=== PATIENT | male | born 1935 | race Caucasian/White ===

== ENCOUNTER 2024-04-03 11:31 | Emergency (ER) | payer MEDICARE, SELFPAY ==
--- NOTE | ~2024-04-03 | US_ITS ---
EXAMINATION: US TRIPLEX LOWER EXTREMITY, LEFT CLINICAL INFORMATION: Left leg pain x 3 weeks COMPARISON: None available. TECHNIQUE: Color-flow triplex imaging with spectral analysis and compression Doppler were performed on the left lower extremity. FINDINGS: Respiratory variation, normal compression and augmented flow are noted throughout the left lower extremity. The visualized common femoral vein, superficial femoral vein, profunda femoral vein, popliteal vein and midcalf peroneal and posterior tibial venous segments show no evidence of deep venous thrombosis. There is no Mckeon's cyst. US/US venous duplex LE LT IMPRESSION: No evidence of deep venous thrombosis involving the left lower extremity. Electronically signed by: Khoi Govea MD 04/03/2024 01:05 PM [facility]
--- NOTE | ~2024-04-03 | XR_ITS ---
CLINICAL HISTORY: back pain 3 views lumbar spine Comparison: None Findings: There is trace retrolisthesis of L2 on L3. There is grade 1 anterolisthesis of L4 on L5. No acute fractures or dislocation. Multilevel degenerative disc disease, most pronounced within the lower lumbar spine. Facet osteoarthritis is also present within the mid and lower lumbar spine. There is partial visualization of right hip replacement hardware. There are vascular calcifications. IMPRESSION: Multilevel degenerative disc disease and facet osteoarthritis. Mild spondylolisthesis at L2-L3 and L4-L5. This document has been electronically signed by: Elizabeth Guerrier MD on 04/03/2024 17:26:56
--- NOTE | ~2024-04-03 | XR_ITS ---
CLINICAL HISTORY: pain 3 view, pelvis and left hip Comparison: None Findings: Status post right hip replacement. Visualized hardware intact without evidence of failure. No acute fracture. No dislocation. There are mild arthritic changes of the left hip. The soft tissues are unremarkable. IMPRESSION: No acute findings. This document has been electronically signed by: Elizabeth Guerrier MD on 04/03/2024 17:24:25
--- NOTE | 2024-04-03 11:41 | ED_ITS ---
HPI - General Adult General Chief complaint: Extremity Injury, Lower Stated complaint: L leg pain Time Seen by Provider: 04/03/24 14:52 Source: patient and RN notes reviewed Mode of arrival: ambulatory Limitations: no limitations History of Present Illness ED Provider: Marie Leroy PA-C [facility] narrative: This is a 89 year old male, a fib on coumadin, diabetes, DDD, who presents to the ER with complaints of left leg pain. Pt states that over the last 3 weeks he has had intermittent left leg pain. No recent trauma or injury. Reports that the pain starts in his left low back and radiates down his left leg. He denies any urinary or bowel retention or incontinence. No saddle anesthesia. No numbness/tingling. He denies any chest pain, shortness of breath, abdominal pain. No urinary symptoms. He previously saw [facility] and was previously getting back injections, has not seen them in > 1 year. He has tried tylenol, tramadol and morphine for his pain which has provided him with some relief. No other complaints or concerns at this time. MD complaint: left leg pain Onset (ago): week(s) Radiation: back Severity: moderate Quality: aching Pain Consistency: intermittent Relieving factors: immobilization Exacerbating factors: movement Treatments prior to arrival: none Related Data Previous Rx's ?Medication ?Instructions ?Recorded acetaminophen 650 mg 650 mg PO Q8H #30 tabs 04/03/24 tablet,extended release (Tylenol 8 Hour) lidocaine 5 % topical patch 1 patch topical DAILY PRN pain #30 04/03/24 ea Allergies Allergy/AdvReac Type Severity Reaction Status Date / Time No Known Allergies Allergy Verified 04/03/24 11:45 Review of Systems 2 Review of Systems: Yes all other systems are reviewed and are negative Constitutional: Constitutional: Reports as per [facility] Past Medical History Attestation statement: The following information was validated with the patient. Social History Social History Advance Directives: No Advance Directives Information Provided: Yes Do you have a plan to hurt others: No Plan Physical Exam ED Vital Signs: Vital Signs - 24 hr 04/03/24 11:42 04/03/24 15:18 04/03/24 18:30 Temperature 98.6 F 98 F 97.5 F Pulse Rate 69 59 55 Respiratory Rate 16 15 16 Blood Pressure 139/65 141/63 H 158/73 H Pulse Oximetry 99 97 100 Oxygen Delivery Method Room Air Room Air Room Air 04/03/24 19:03 Temperature 97.5 F Pulse Rate 55 Respiratory Rate 16 Blood Pressure 158/73 H Pulse Oximetry 100 Oxygen Delivery Method Room Air BMI result Body Mass Index 27.0 Const General: cooperative, comfortable and no acute distress Orientation/consciousness: patient oriented x3 Limitations: no limitations HENNM Head: Yes normal to inspection, Yes normocephalic and Yes atraumatic Ears: hearing grossly normal bilaterally General nose exam: Normal external nose present Face and sinus: Yes normal facial exam Mouth: Normal oral and palatal mucosa present, oropharynx normal and moist mucous membranes Throat: Yes posterior oropharynx normal Eyes General: appearance normal, both eyes and all related structures Eyelids: Yes eyelids normal Conjunctivae: conjunctivae normal Sclerae: sclerae normal Pupils: Equal, round and reactive pupils present EOM: EOMs intact bilaterally Neck Neck: Yes normal visual inspection, Yes full ROM and Yes no lymphadenopathy Lymphatic: no lymphadenopathy noted Chest Chest palpation & inspection: normal inspection of the chest Resp Effort & Inspection: normal respiratory effort and able to speak in complete sentences Auscultation: clear to auscultation bilaterally, no crackles, no rales, no rhonchi and no wheezes Cardio Rate: regular rate Rhythm: regular rhythm Heart sounds: S1 normal heart sound present and S2 normal heart sound present GI Inspection: Yes normal to inspection Skin General skin exam: no rashes or lesions noted Trauma: no lacerations or abrasions Wounds: no wounds Neuro General: patient oriented x3 and moves all extremities Cranial nerves: Yes Equal, round and reactive pupils present Extrem Other: Left leg warm and is well perfused with strong DP, popiteal, and femoral pulse. +STL on the left. Capillary refill less than 3 seconds. No calf tenderness. No pitting edema. TTP overlying the left lumbar musculature and left SI joint. No midline spine TTP. Sensation intact. General: Yes normal to inspection Right upper extremity: normal to inspection Left upper extremity: normal to inspection Right lower extremity: normal to inspection Left lower extremity: normal to inspection Course Course Course Narrative: This is a rapid medical exam performed by Edin Tamayo NP: Additional HPI, ROS, PE not included below will be deferred to primary provider. Patient is an 89-year-old male with history of afib on warfarin, DM presenting to the emergency department with complaint of left lower leg pain since the beginning of march. Plan: labs, U/S Medications Administered Discontinued Medications Generic Name Dose Route Start Last Admin Trade Name Francisca PRN Reason Stop Dose Admin Sodium Chloride 1,000 mls @ 999 mls/hr 04/03/24 16:32 04/03/24 17:46 Ns IV 04/03/24 17:32 Infused .Q1H1M ONE Infusion Medical Decision Making Medical Decision Making [facility] Narrative: This is a 89 year old male, with a hx of afib on coumadin, diabetes, DDD, who presents to the ER with complaints of atraumatic left leg pain and left low back pain x 3 weeks. On arrival, vital signs WNL. Pt well appearing, alert and oriented x 4 and is comfortable. He is here with family. Pt with TTP overlying the left SI joint, and lumbar musculature. He has no calf tenderness. Leg is well perfused with strong pulses and sensation intact. This patient presents with back pain most consistent with lumbar radiculopathy. Differential diagnoses includes lumbago versus musculoskeletal spasm / strain versus sciatica. No back pain red flags on history or physical. Presentation not consistent with malignancy (lack of history of malignancy, lack of B symptoms), fracture (no trauma, no bony tenderness to palpation), cauda equina syndrome (no bowel or urinary incontinence/retention, no saddle anesthesia, no distal weakness), pyelonephritis (afebrile, no CVAT, no urinary symptoms). Labs were obtained which reveal an elevated creatinine, unsure of baseline as we have no labs on record for comparison. Mild elevated in bilirubin, no previous for comparison. He has no abdominal pain. Xrays obtained revealing spondylosis and degenerative changes. Discussed findings with patient and family at bedside. Recommending tylenol. He has diabetes therefore steroids was considered however deferred. Given age, and anticoagulation he is unable to take NSAIDs, and muscle relaxants contraindicated due to risk of falls. Stressed the importance of following up with PCP and PSSP. Also given referrral to the community specialist if they would like to follow up with them. Given return precautions. They understand and agree with plan. Stable for d/c. Differential Diagnosis Differential Diagnoses: The differential diagnosis associated with the presentation includes see above Admission/Observation Consideration of admission/observation: Escalation of care including admission/observation considered Escalation of care including admission/observation considered however given workup today not warranted at this time. Lab Data MDM Lab Attestation statement: I reviewed the patient's lab results. No leukocytosis, mild anemia at 13.9/41.1, Creatinine 1.73 BUN 35 (no comparison on file),T bili slightly elevated at 1.6. 04/03/24 13:26 04/03/24 13:26 Labs: Lab Results 04/03/24 Range/Units 13:26 WBC 7.0 (4.8-10.8) X10*3/uL RBC 4.62 (4.60-5.80) X10*6/uL Hgb 13.9 L (14.0-18.0) g/dl Hct 41.1 L (42.0-52.0) % MCV 89.0 (80.0-98.0) fL MCH 30.1 (27.0-33.0) pg MCHC 33.8 (31.0-36.0) g/dl RDW 14.0 (11.0-16.0) % Plt Count 181 (160-400) X10*3/uL MPV 12.4 (9.4-12.4) fL Immature Gran % (Auto) 0.3 (0.0-0.4) % Neut % (Auto) 76.8 H (45-73) % Lymph % (Auto) 13.7 L (20-40) % Beauregard % (Auto) 8.5 (2-11) % Eos % (Auto) 0.6 (0-4) % Baso % (Auto) 0.1 (0-2) % Lymph # (Auto) 1.0 L (1.2-4.9) X10*3/uL Beauregard # (Auto) 0.6 (0.1-1.2) X10*3/uL Eos # (Auto) 0.0 (0.0-0.4) X10*3/uL Baso # (Auto) 0.0 (0.0-0.2) X10*3/uL Abs Immat Gran (auto) 0.02 (0.00-0.03) X10*3/uL Absolute Neuts (auto) 5.4 (2.0-8.3) x10*3/uL Absolute Nucleated RBC 0.000 (0.0-0.012) X10*3/uL Nucleated RBC % (auto) 0.0 (0.0-0.2) /100WBC PT 26.2 H (10.9-12.4) SEC INR 2.2 H (0.9-1.1) Sodium 136 (135-145) mmol/L Potassium 4.6 (3.3-5.1) mmol/L Chloride 99 (96-108) mmol/L Carbon Dioxide 29 (22-29) mmol/L Anion Gap 13 (12-20) BUN 35 H (9-16) mg/dL Creatinine 1.73 H (0.5-1.4) mg/dL Estim Creat Clear Calc 28.9 Estimated GFR 37 Random Glucose 137 H (60-115) mg/dL Calcium 9.5 (8.4-10.2) mg/dL Total Bilirubin 1.6 H (0.0-1.0) mg/dL AST 38 H (5-37) U/L ALT 17 (0-40) U/L Alkaline Phosphatase 51 (39-117) U/L Total Protein 7.8 (6.5-8.0) g/dL Albumin 4.1 (3.5-5.0) g/dL Radiology Impression Discussion of test interpretation with radiology: I have reviewed the radiologist's reading. Radiologist Impression: CLINICAL HISTORY: back pain 3 views lumbar spine Comparison: None Findings: There is trace retrolisthesis of L2 on L3. There is grade 1 anterolisthesis of L4 on L5. No acute fractures or dislocation. Multilevel degenerative disc disease, most pronounced within the lower lumbar spine. Facet osteoarthritis is also present within the mid and lower lumbar spine. There is partial visualization of right hip replacement hardware. There are vascular calcifications. IMPRESSION: Multilevel degenerative disc disease and facet osteoarthritis. Mild spondylolisthesis at L2-L3 and L4-L5. This document has been electronically signed by: Elizabeth Guerrier MD on 04/03/2024 17:26:56 Dictated By: Elizabeth Guerrier MD Findings: Status post right hip replacement. Visualized hardware intact without evidence of failure. No acute fracture. No dislocation. There are mild arthritic changes of the left hip. The soft tissues are unremarkable. IMPRESSION: No acute findings. This document has been electronically signed by: Elizabeth Guerrier MD on 04/03/2024 17:24:25 Dictated By: Elizabeth Guerrier MD [address] [address] Ultrasound Report Signed Patient: Florencio Philippe MR#: [id number] : 1935 Acct:[id number] Age/Sex: 89 / M ADM Date: 04/03/24 Loc: HO.ED Attending Dr: Ordering Physician: Yuliana Tamayo NP Date of Service: 04/03/24 Procedure(s): US venous duplex LE LT Accession Number(s): [id number] cc: MARGARITA BOWSER MD; Yuliana Tamayo NP~ EXAMINATION: US TRIPLEX LOWER EXTREMITY, LEFT CLINICAL INFORMATION: Left leg pain x 3 weeks COMPARISON: None available. TECHNIQUE: Color-flow triplex imaging with spectral analysis and compression Doppler were performed on the left lower extremity. FINDINGS: Respiratory variation, normal compression and augmented flow are noted throughout the left lower extremity. The visualized common femoral vein, superficial femoral vein, profunda femoral vein, popliteal vein and midcalf peroneal and posterior tibial venous segments show no evidence of deep venous thrombosis. There is no Mckeon's cyst. US/US venous duplex LE LT IMPRESSION: No evidence of deep venous thrombosis involving the left lower extremity. Electronically signed by: Khoi Govea MD 04/03/2024 01:05 PM [facility] Dictated By: Khoi Govea MD Chronic Conditions Patient?s care impacted by: Diabetes Discharge Plan Discharge Clinical Impression: Left lumbar radiculopathy Patient Disposition: Home, Self-Care Instructions: Lumbar Radiculopathy (ED), Lower Back Exercises (ED) Additional Instructions: You were seen in the emergency department for evaluation of low back pain, and left leg pain. You do have evidence of spondylolisthesis in your L2-L3, as well as your L4-L5. You do have degenerative disc disease that can be contributing to your symptoms. Your ultrasound does not show a blood clot. You did have elevated kidney function, we do not have your baseline therefore I recommend you following up with your primary care physician regarding this visit. Drink plenty of fluids get plenty of rest. Take Tylenol as prescribed. Call your primary care physician tomorrow. I am also refer you to the community specialist. If any new or worsening symptoms occur including but not limited to high fevers, chest pain, shortness of breath, please seek emergent care. Prescriptions: New acetaminophen [Tylenol 8 Hour] 650 mg tablet extended release 650 mg PO Q8H Qty: 30 0RF lidocaine 5 % adhesive patch,medicated 1 patch topical DAILY PRN (Reason: pain) Qty: 30 0RF Rx Instructions: leave on most painful area for up to 12 hrs Interventions: ED Discharge Assessment Last Done: 04/03/24 19:03 Discharge Date/Time: 04/03/24 19:03 Print Language: Urdu
[2024-04-03 11:42] VITALS: BP 139/65; PULSE 69; RESP 16; TEMP 37; O2SAT 99; BMI 27.0
[2024-04-03 13:33] LABS: MANUAL DIFF FLAG NO
[2024-04-03 13:42] LABS: INTERNATIONAL NORM RATIO 2.2 (0.9-1.1); Prothrombin Time 26.2 SEC (10.9-12.4)
[2024-04-03 13:44] LABS: Basophils Percent Auto 0.1 % (0-2); Eosinophils Percent Auto 0.6 % (0-4); Hematocrit 41.1 % (42.0-52.0); Hemoglobin 13.9 g/dl (14.0-18.0); Imm Gran Abs Auto 0.02 X10*3/uL (0.00-0.03); Imm Gran Pct Auto 0.3 % (0.0-0.4); Lymphocytes Percent Auto 13.7 % (20-40); Mean Corpuscular HGB Conc 33.8 g/dl (31.0-36.0); Mean Corpuscular Hemoglobin 30.1 pg (27.0-33.0); Mean Platelet Volume 12.4 fL (9.4-12.4); Monocytes Absolute Auto 0.6 X10*3/uL (0.1-1.2); Monocytes Percent Auto 8.5 % (2-11); Neutrophils Absolute Auto 5.4 x10*3/uL (2.0-8.3); Neutrophils Percent Auto 76.8 % (45-73); Platelet Count 181 X10*3/uL (160-400); Red Blood Count 4.62 X10*6/uL (4.60-5.80)
[2024-04-03 14:02] LABS: Alanine Aminotransferase 17 U/L (0-40); Albumin Level 4.1 g/dL (3.5-5.0); Alkaline Phosphatase 51 U/L (39-117); Anion Gap 13 (12-20); Aspartate Amino Transferase 38 U/L (5-37); Bilirubin Total 1.6 mg/dL (0.0-1.0); Blood Urea Nitrogen 35 mg/dL (9-16); Calcium 9.5 mg/dL (8.4-10.2); Carbon Dioxide 29 mmol/L (22-29); Chloride 99 mmol/L (96-108); Creatinine Clr Calc Pharmacy 28.9; Estimated Glomerular Filt Rate 37; Glucose Random 137 mg/dL (60-115); Potassium 4.6 mmol/L (3.3-5.1); Sodium 136 mmol/L (135-145); Total Protein 7.8 g/dL (6.5-8.0)
[2024-04-03 15:18] VITALS: BP 141/63; PULSE 59; RESP 15; TEMP 36.6; O2SAT 97
[2024-04-03] MEDS: 0.9 % Sodium Chloride 1,000 ML 999 ML IV (16:46)
--- OUTSIDE RECORDS SUMMARY | 2024-04-03 17:45 | XMS_ITS | Clinical Summary ---
Author Organization [facility] [employer] [facility] Address [address] [place] [address] Phone Care Team Providers Care Art Education Professor Name Role Phone Sharita Crouch MD Primary Care Provider [phone] Allergies Active Allergy Reactions Criticality Noted Date Comments Benazepril 04/01/2022 Other reaction(s): rash Benazepril Hcl 06/26/2020 Hydrochlorothiazide 06/26/2020 Lisinopril 06/26/2020 Medications Medication Sig Dispensed Refills Start Date End Date Status warfarin (COUMADIN) 1 mg tablet Take 1-2 tablets by mouth daily as directed by [facility] 09/27/2023 Active warfarin (COUMADIN) 2 mg tablet Take 1 tablets daily as directed by [facility] 09/27/2023 Active oxyCODONE (ROXICODONE) 5 mg immediate release tablet Take 1 Tablet by mouth every 4 hours as needed for Pain (SEVERE PAIN). Take with food 06/27/2023 Active acetaminophen (TYLENOL) 500 mg tablet Take 2 tablets (1,000 mg total) by mouth every 8 (eight) hours if needed. 06/27/2023 Active cyanocobalamin (VITAMIN B-12) 1,000 mcg tablet Take 1 tablet (1,000 mcg total) by mouth 1 (one) time each day. Active indapamide (LOZOL) 2.5 mg tablet Take 1 tablet (2.5 mg total) by mouth 1 (one) time each day in the morning. Active ZINC ORAL Zinc 50 MG Tab Take 1 Tablet by mouth daily. Active cilostazoL (PLETAL) 50 mg tablet Take 1 tablet (50 mg total) by mouth 2 (two) times a day. Active omeprazole (PriLOSEC) [address] capsule Take 1 capsule (20 mg total) by mouth 1 (one) time each day. Active diphenhydrAMINE-debora taminophen (TYLENOL PM) 25-500 mg per tablet Take 1 tablet by mouth at bedtime as needed. Active morphine (MSIR) 15 mg tablet Take 1 Tablet by mouth 2 times daily as needed. Active diclofenac (VOLTAREN) 1 % topical gel Apply 1 Application topically 1 (one) time each day. Active warfarin (COUMADIN) 5 mg tablet TAKE 1 TABLET DIRECTED BY THE PRESCRIBER. TAKE AT THE SAME TIME DAILY. DO NOT CHANGE DIETARY HABITS. MAY CAUSE HEAVY BLEEDING 05/27/2021 Active amLODIPine (NORVASC) 10 mg tablet Take 10 mg by mouth daily. 03/08/2017 Active fluticasone propionate (FLONASE) 50 mcg/actuation nasal spray as needed. Active sumatriptan succinate (IMITREX ORAL) Take 100 mg by mouth as needed. Active metFORMIN (GLUCOPHAGE) 500 mg tablet Take 1 tablet (500 mg total) by mouth 2 (two) times a day. Active valsartan (DIOVAN) 320 mg tablet Take 320 mg by mouth daily. 02/05/2019 Active albuterol HFA (PROAIR HFA ; PROVENTIL HFA ; VENTOLIN HFA) 90 mcg/actuation inhaler Inhale by mouth. Active alfuzosin (UROXATRAL) 10 mg 24 hr tablet Take 1 tablet (10 mg total) by mouth 1 (one) time each day. Active Readi-Cat 2 2 % (w/v) suspension PLEASE SEE ATTACHED FOR DETAILED DIRECTIONS 04/19/2023 Active enoxaparin (LOVENOX) 30 mg/0.3 mL syringe Inject 0.3 mL (30 mg total) under the skin. 06/14/2023 Active ipratropium (ATROVENT) 21 mcg (0.03 %) nasal spray INHALE 1 TO 2 SPRAYS IN EACH NOSTRIL TWICE A DAY NEEDED FOR NASAL CONGESTION 09/14/2023 Active Lactobacillus acidophilus 10 billion cell capsule Take by mouth. 06/14/2023 Active magnesium oxide 500 mg capsule Take 500 mg by mouth. Active Paxlovid 300 mg (150 mg x 2)-100 mg tablet therapy pack TAKE DIRECTED ON THE SURVEYOR CHAIN HELPER PACKAGING 03/31/2023 Active ondansetron ODT (ZOFRAN-ODT) 8 mg disintegrating tablet Take 1 tablet (8 mg total) by mouth. 06/14/2023 Active senna-docusate (PERICOLACE) 8.6-50 mg per tablet Take 2 tablets by mouth. 06/14/2023 Active zinc gluconate 50 mg tablet Take 1 tablet (50 mg total) by mouth. Active atorvastatin (LIPITOR) 40 mg tablet Take 1 tablet (40 mg total) by mouth 1 (one) time each day. 90 each 3 2024 Active atorvastatin (LIPITOR) 20 mg tabletIndications:M ixed hyperlipidemia Take 1 tablet (20 mg total) by mouth 1 (one) time each day. 90 each 2 03/04/2024 Discontinued (Discontinue d by another clinician) Active Problems Problem Noted Date Diagnosed Date Status post total replacement of right hip 06/26 Benign prostatic hyperplasia 03/28/2023 Chronic low back pain 03/28/2023 Hypercoagulable state 03/28/2023 Malignant neoplasm of prostate 03/28/2023 Primary osteoarthritis of right hip 03/28/2023 PVC's (premature ventricular contractions) 02/17 Overview (03/01/2024): Aortic dilatation 09/16/2021 Assessment & Plan (03/01/2024 9:10 AM EST): Patient's last echocardiogram showing ascending aorta measuring 4.1 cm. This is stable. No new symptoms or concerns related to aortic dilatation were reported. He will continue with regular monitoring. Hypertensive disorder 06/26/2020 Assessment & Plan (03/01/2024 9:11 AM EST): Patient's blood pressure today 138/60. This is well-controlled. He will continue on his present medical therapies Including amlodipine and valsartan. Mixed hyperlipidemia 06/26/2020 Assessment & Plan (03/01/2024 9:12 AM EST): Routine blood work, including cholesterol levels, will be conducted. He is advised to continue with a healthy diet and regular exercise. Continue with atorvastatin as prescribed. Obstructive sleep apnea syndrome 06/26/2020 Second degree atrioventricular block 06/26/2020 Assessment & Plan (03/01/2024 9:11 AM EST): Patient has history of PVCs. He denies any palpitations at this time. Type 2 diabetes mellitus 06/26/2020 Atrial fibrillation 02/04/2020 Assessment & Plan (03/01/2024 9:10 AM EST): Patient has history of chronic atrial fibrillation with ventricular rates in the 50s today. He remains asymptomatic. He denies any palpitations or perceptions of recurrent atrial fibrillation. He has an elevated [id number] score and continues on warfarin for anticoagulation. Routine blood work, including INR levels, will be conducted. He is advised to maintain a healthy diet and regular exercise regimen. 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) 10/07/2006 Encounters Date Type Department Care Team Description 04/02/2024 Anticoagulation - Warfarin Visit [facility] [address] [place] [address] Tristin Hernandez MD Atrial fibrillation, unspecified type (CMS/HCC) (Primary Dx) 03/28/2024 Anticoagulation - Warfarin Visit [facility] [address] [place] [address] Annalee Concepcion NP Atrial fibrillation, unspecified type (CMS/HCC) (Primary Dx) 03/07/[address] [facility] [address] [place] [address] Tristin Hernandez MD patient states lab result came back with high results 03/01/2024 8:40 AM EST Office Visit [facility] [address] [place] [address] Annalee Concepcion NP Atrial fibrillation, unspecified type (CMS/HCC) (Primary Dx); Mixed hyperlipidemia; Primary hypertension; PVC's (premature ventricular contractions); Hypercoagulable state (CMS/HCC); Aortic dilatation (CMS/HCC); Second degree atrioventricular block 03/01/2024 Telephone [facility] [address] [place] [address] Annalee Concepcion NP Leg Cramps 03/01/2024 Anticoagulation - Warfarin Visit [facility] [address] [place] [address] Tristin Hernandez MD Atrial fibrillation, unspecified type (CMS/HCC) (Primary Dx) 01/22/2024 Anticoagulation - Warfarin Visit [facility] [address] [place] [address] Tristin Hernandez MD Atrial fibrillation, unspecified type (CMS/HCC) [I48.91] (Primary Dx) 01/18/2024 9:15 AM EST Office Visit Orthopedic Surgery - [place] [address] [place] [address] Nicolle Salas PA Hand arthritis (Primary Dx) 01/08/2024 Anticoagulation - Warfarin Visit [facility] [address] [place] [address] Tristin Hernandez MD from Last 3 Months Immunizations Name Administration Dates Next Due Influenza Quadravalent, 0.5m l (Fluad) 65yo and older 01/03/2022,12/16/2020 Influenza Quadravalent, 0.5m l (Fluzone High-dose) 65yo and older 12/30/2022,11/01/2019 Influenza trivalent, 0.5mL ( Fluzone High-dose) 65yo and older 12/16/2023,01/07/2019,12/27/2017 RSV, bivalent, protein subun it RSVpreF, 0.5mL, Preservative Free (Arexvy) 60yo and older 04/22/2023 Tdap Tetanus diptheria acell ular pertussis (Boostrix; Adacel) 7yo and older 04/10/2018 Zoster recombinant (Shingrix ) 19yo and older 10/04/2018,07/27/2018 Medical History Medical History Date Comments Essential hypertension DX:Essent ial hypertension Hyperlipidemia DX:Hyperlipidemi a Family History Medical History Relation Name Comments No Known Problems Daughter 1 No Known Problems Daughter 2 Brain Aneurysm Father Brain Aneurysm Mother Other: leg problems Mother No Known Problems Sister No Known Problems Son Relation Name Status Comments Daughter 1 Alive Daughter 2 Alive Father Mother Sister Son Alive Social History Tobacco Use Types Packs/Day Years Used Date Smoking Tobacco: Former Cigarettes Q uit: 03/13/1976 Smokeless Tobacco: Never Alcohol Use Standard Drinks/Week Comments Not Currently 0 (1 standard drink = 0.6 oz pur e alcohol) Sex and Gender Information Value Date Recorded Sex Assigned at Not on file Gender Identity Not on file Sexual Orientation Not on file Job Start Date Occupation Industry Not on file Not on file Not on file Obstetrics History Last Filed Vital Signs Vital Sign Reading Time Taken Comments Blood Pressure 138/60 03/01/2024 8:14 AM EST Pulse 65 03/01/2024 8:14 AM EST Temperature - - Respiratory Rate - - Oxygen Saturation 95% 03/01/2024 8:14 AM EST Inhaled Oxygen Concentration - - Weight 86.5 kg (190 lb 9.6 oz) 03/01/2024 8:14 A M EST Height 175.3 cm (5' 9 ) 03/01/2024 8:14 AM EST Body Mass Index 28.15 03/01/2024 8:14 AM EST Plan of Treatment Upcoming Encounters Date Type Department Care Team (Late st Contact Info) Description 06/05/2024 10:30 AM EDT Office Visit Orthopedic Surgery - [place] [address] [address] Morgan White MD [address] [address] Health Maintenance Due Date Last Done Comments Diabetes: Annual Foot Exam 1945 Diabetes: Annual Retina Eye Exam 1945 Depression Screening 02/19/2022 Falls Risk Assessment 02/19/2022 Social Influencers of Health Screening 02/19/2022 Diabetes: Blood Sugar Control Test (HGBA1C) 02/23/2022 Medicare Annual Wellness Visit 11/04/2023 11/03/2022 Hypertension/CHF/CAD Annual BMP Blood Test 03/01/2025 03/01/2024, 06/01/2023 DTaP,Tdap,and Td Vaccines (3 - Td or Tdap) 04/10/2028 04/10/2018, 02/06/2000 Cholesterol Screening (Lipid Panel) 03/01/2029 03/01/2024 Pneumococcal Vaccine: 65+ Years Completed 08/14/2014, 02/11/2001 Zoster Vaccines Completed 10/04/2018, 07/11, 08/16/2007 RSV Immunization Patients 60+ Years Old Completed 04/22/2023 COVID-19 Vaccine Completed 12/16/2023, , 01/03/2022, Additional history exists Influenza Vaccine Completed 12/16/2023, , 01/03/2022, Additional history exists HIB Vaccines Aged Out No longer eligi ble based on patient's age to complete this topic HPV Vaccines Aged Out No longer eligi ble based on patient's age to complete this topic Hepatitis A Vaccines Aged Out No long er eligible based on patient's age to complete this topic Hepatitis B Vaccines Aged Out No long er eligible based on patient's age to complete this topic IPV Vaccines Aged Out No longer eligi ble based on patient's age to complete this topic MMR Vaccines Aged Out No longer eligi ble based on patient's age to complete this topic Meningococcal ACWY Vaccine Aged Out N o longer eligible based on patient's age to complete this topic RSV Immunization Patients Under 20 months Aged Out No longer eligible based on patient's age to complete this topic Varicella Vaccines Aged Out No longer eligible based on patient's age to complete this topic Procedures Procedure Name Priority Date/Time Associated Diagnosis Comments PROTHROMBIN TIME WITH INR Routine 03/29/2024 9:45 AM EST PROTHROMBIN TIME WITH INR Routine 03/28/2024 PROTHROMBIN TIME WITH INR Routine 03/01/2024 9:22 AM EST LIPID PANEL Routine 03/01/2024 9:19 AM EST Atrial fibrillation, unspecified type (CMS/HCC) Mixed hyperlipidemia Primary hypertension COMPREHENSIVE METABOLIC PANEL Routine 03/01/2024 9:19 AM EST Atrial fibrillation, unspecified type (CMS/HCC) Mixed hyperlipidemia Primary hypertension ECG 12-LEAD Routine 03/01/2024 9:13 AM EST Atrial fibrillation, unspecified type (CMS/HCC) PROTHROMBIN TIME WITH INR Routine 01/19/2024 10:00 AM EST DE ARTHROCENTESIS/ASPIRA TION/INJECTION SMALL JOINT/BURSA WO U/S GUIDANCE Routine 01/18/2024 9:15 AM EST Hand arthritis DE ARTHROCENTESIS/ASPIRA TION/INJECTION SMALL JOINT/BURSA WO U/S GUIDANCE Routine 01/18/2024 9:15 AM EST Hand arthritis PROTHROMBIN TIME WITH INR Routine 01/05/2024 from Last 3 Months Results * (ABNORMAL) Prothrombin time with INR (03/29/2024 9:45 AM EST) Only the most recent of5 resultswithin the time period is included. International Normalized Ratio (INR) 3.5(H) 0.9 - 1.1 [facility] 1 Prothrombin Time 32.0(H) 9.2 - 11.4 SEC [facility] 1 03/29/2024 9:45 AM EST 03/29/2024 Narrative [facility] 1 - 03/29/2024 5:16 PM EST Performed at: ??01 - [address] ??[id number] Adult Specialist: Long Elise MD, Phone: ??[phone] Tristin Hernandez MD LAB BLOOD ORDERABLES [facility] 1 * (ABNORMAL) Lipid panel (03/01/2024 9:19 AM EST) Cholesterol Total 181 100 - 199 mg/dL [facility] 1 Triglycerides 126 0 - 149 mg/dL [facility] 1 HDL Cholesterol 35(L) >39 mg/dL [facility] 1 VLDL Cholesterol Calculated 23 5 - 40 mg/dL [facility] 1 LDL Chol Calc ([facility]) 123(H) 0 - 99 mg/dL [facility] 1 Blood Venous blood specimen / Unknown 03/01/2024 9:19 AM EST 03/01/2024 Narrative [facility] 1 - 03/02/2024 2:06 AM EST Performed at: ??01 - [facility] ??[id number] Adult Specialist: Nasrin Albarado MD, Phone: ??[phone] Annalee Concepcion FRAME CLEANER LAB BLOOD ORDERABLES [facility] * (ABNORMAL) Comprehensive metabolic panel (03/01/2024 9:19 AM EST) Glucose 149(H) 70 - 99 mg/dL [facility] 1 Blood Urea Nitrogen (BUN) 21 8 - 27 mg/dL [facility] 1 Creatinine 1.14 0.76 - 1.27 mg/dL [facility] 1 eGFR 62 >59 mL/min/1. 73 [facility] 1 BUN/Creatinine Ratio 18 10 - 24 [facility] 1 Sodium 141 134 - 144 mmol/L [facility] 1 Potassium 4.5 3.5 - 5.2 mmol/L [facility] 1 Chloride 101 96 - 106 mmol/L [facility] 1 Carbon Dioxide 24 20 - 29 mmol/L [facility] 1 Calcium 9.7 8.6 - 10.2 mg/dL [facility] 1 Protein Total 7.3 6.0 - 8.5 g/dL [facility] 1 Albumin 4.6 3.7 - 4.7 g/dL [facility] 1 Globulin Total 2.7 1.5 - 4.5 g/dL [facility] 1 Bilirubin Total 0.4 0.0 - 1.2 mg/dL [facility] 1 Alkaline Phosphatase 53 44 - 121 IU/L [facility] 1 Aspartate aminotransferase??(A ST) 28 0 - 40 IU/L [facility] 1 Alanine Aminotransferase (ALT) 24 0 - 44 IU/L [facility] 1 Blood Venous blood specimen / Unknown 03/01/2024 9:19 AM EST 03/01/2024 Narrative [facility] 1 - 03/02/2024 2:06 AM EST Performed at: ??01 - [facility] [address], [place], [place] ??[id number] Adult Specialist: Nasrin Albarado MD, Phone: ??[phone] Annalee Concepcion FRAME CLEANER LAB BLOOD ORDERABLES Performing Organization Address [facility] Co de Phone Number [facility] * ECG 12 lead (03/01/2024 9:13 AM EST) Ventricular Rate ECG 53 BPM GEMUSE Atrial Rate 55 BPM GEMUSE QRS Duration 100 ms GEMUSE Q-T Interval 432 ms GEMUSE QTc 405 ms GEMUSE R Wister 9 degrees GEMUSE T Wister 58 degrees GEMUSE ECG Interpretation Atrial fibrillation with occasional PVCs No significant change was found Confirmed by Phu HERNANDEZ JAMES ([id number]) on 03/01/2024 12:31:10 PM GEMUSE 03/01/2024 8:33 AM EST 03/01/2024 12:31 PM EST Annaleese Campci FRAME CLEANER ECG ORDERABLES Performing Organization Address [facility] Phone Number [facility] * DE ARTHROCENTESIS/ASPIRATION/INJECTION SMALL JOINT/BURSA WO U/S GUIDANCE (01/18/2024 9:15 AM EST) Narrative Phyllis Lazcano MD - 01/18/2024 9:15 AM EST MARITZA Nagel ? 01/18/2024 ??9:57 AM Hand / UE Inj/Asp: L thumb CMC for osteoarthritis Details: 25 G needle, dorsal approach Medications: 1 mL lidocaine 1 %; 30 mg triamcinolone acetonide 40 mg/mL Informed Consent: ??Laterality: ??Left ??Relevant images/test results available and reviewed: yes ?Health status cleared: ??Yes ??Procedure/treatment, purpose, treatment alternatives, risks/potential complications and benefits explained: yes ?Risk/complications/benefits details: ??Risks of infection, thinning of the skin and temporary skin discoloration discussed. ??Discussed risks of temporary increased pain after injection and swelling and mild redness at injection site for couple days. ??Explained occasionally cortisone injection can cause facial flushing temporarily. ??Benefits pain management. ??For postop injection pain ice, Tylenol and/or NSAIDs if patient can take ??Patient questions answered: yes ?Patient agrees, verbalizes understanding, and wants to proceed: yes ?Consent given by: ??Patient ??Pre-procedure timeout performed: yes ?? Nicolle SALAS IN CLINIC/BEDSIDE OR DERABLES * DE ARTHROCENTESIS/ASPIRATION/INJECTION SMALL JOINT/BURSA WO U/S GUIDANCE (01/18/2024 9:15 AM EST) Narrative Phyllis Lazcano MD - 01/18/2024 9:15 AM EST MARITZA Nagel ? 01/18/2024 ??9:57 AM Hand / UE Inj/Asp: L index MCP for osteoarthritis Details: 25 G needle, dorsal approach Medications: 0.5 mL lidocaine 1 %; 10 mg triamcinolone acetonide 40 mg/mL Informed Consent: ??Site: ??Left index finger metacarpophalangeal joint ??Laterality: ??Left ??Relevant images/test results available and reviewed: yes ?Health status cleared: ??Yes ??Procedure/treatment, purpose, treatment alternatives, risks/potential complications and benefits explained: yes ?Risk/complications/benefits details: ??Risks of infection, thinning of the skin and temporary skin discoloration discussed. ??Discussed risks of temporary increased pain after injection and swelling and mild redness at injection site for couple days. ??Explained occasionally cortisone injection can cause facial flushing temporarily. ??Benefits pain management. ??For postop injection pain ice, Tylenol and/or NSAIDs if patient can take ??Patient questions answered: yes ?Patient agrees, verbalizes understanding, and wants to proceed: yes ?Consent given by: ??Patient ??Informed consent discussion completed by Physician/ERICK with patient: ?? Verbal ??Pre-procedure timeout performed: yes ?? Nicolle SALAS IN CLINIC/BEDSIDE OR DERABLES from Last 3 Months Advance Directives Documents on File Type Date Recorded Patient Tube Trailer Filler Expl anation Health Care Decision (hx) 06/06/2023 HE ALTH CARE PROXY Care Teams Art Education Professor Relationship Specialty Start Date End Date Sharita Crouch MD [address] [place] [address] PCP - General 05/16/12
--- OUTSIDE RECORDS SUMMARY | 2024-04-03 17:45 | XMS_ITS | Encounter Summary ---
Author Organization [facility] Address [address] [place] [address] Care Team Providers Care Educational Sign Language Interpreter Name Role Phone Sharita Crouch MD Primary Care Provider [phone] Encounter Details Date Type Department Care Team (Latest Contact Info) Description 04/02/2024 Anticoagulation - Warfarin Visit [facility] [address] [place] [address] Tristin Hernandez MD [address] [place] [address] [address] [place], [place] [id number] Atrial fibrillation, unspecified type (CMS/HCC) (Primary Dx) Social History Tobacco Use Types Packs/Day Years [...] file Not on file Not on file documented as of this encounter Progress Notes * Lizeth Palma MA - 04/02/2024 11:05 AM EST The patient will go to the lab on 04/03/24 and he will call the office if he has not heard from us by 2:00 pm documented in this encounter Plan of Treatment Upcoming Encounters Date Type Department Care Team (Late st Contact Info) Description 06/05/2024 10:30 AM EDT Office Visit Orthopedic Surgery - [place] [address] [address] Morgan White MD [address] [address] documented as of this encounter Visit Diagnoses Diagnosis Atrial fibrillation, unspecified type (CMS/HCC)- Primary documented in this encounter Care Teams Educational Sign Language Interpreter Relationship Specialty Start Date End Date Sharita Crouch MD [address] [place] [address] PCP - General 05/16/12 documented as of this encounter
--- OUTSIDE RECORDS SUMMARY | 2024-04-03 17:45 | XMS_ITS | Encounter Summary ---
Author Organization [facility] Address [address] [place] [address] Care Team Providers Care Medical Social Worker Name Role Phone Sharita Crouch MD Primary Care Provider [phone] Reason for Visit * Reason Onset Date Comments patient states lab result came back with high re samia 03/07/2024 Encounter Details Date Type Department Care Team (Late st Contact Info) Description 03/07/2024 Telephone [facility] [address] [place] [address] Tristin Hernandez MD [address] [place] [address] [address] [place], [place] [phone] patient states lab result came back with high results Social History Tobacco Use Types Packs/Day Years [...] on file documented as of this encounter Ordered Prescriptions Prescription Sig Dispensed Refills Start Date End Da te atorvastatin (LIPITOR) 40 mg tablet Take 1 tablet (40 mg total) by mouth 1 (one) time each day. 90 each 3 2024 documented in this encounter Progress Notes * Linda Greenwood MA - 2024 1:10 PM EST Patient was reached and informed of lab results. Patient was instructed per Zoraida to increase his Atorvastatin from 20 to 40 mg daily. A new Rx [facility] his request. Patient was also instructed to repeat a fasting lipid panel in 12 weeks. The lab order was mailed to the patient with a reminder to repeat the lab in 12 weeks. * Zoraida Concepcion NP - 2024 11:35 AM EST Please have patient increase atorvastatin to 40mg daily and repeat lipids in 12 weeks. Thanks, zoraida * Erica Hinojosa MA - 03/07/2024 3:42 PM EST I reviewed labs and nothing is exiciting just elevated glucose of 149 which he can discuss with PCPand lipid panel showed a low HDL of 35 and LDL wnl of 123 but ideally should be 70 or below--as itsnon urgent I will send to [facility] to assess upon returning * Rita Floyd - 03/07/2024 3:22 PM EST Florencio saw Zoraida on 03/01/24. At that appointment she ordered labs for him. He got his results from [facility] and some of the results are high and we wants to know what this means and what he needs todo. Please call him back at [phone]. documented in this encounter Plan of Treatment Upcoming Encounters Date Type Department Care Team (Late st Contact Info) Description 06/05/2024 10:30 AM EDT Office Visit Orthopedic Surgery - [place] [address] [address] Morgan White MD 175 [facility] [address] [place] [address] Scheduled Orders Name Type Priority Associated Diagnoses Orde r Schedule Lipid panel Lab Routine Mixed hyperlipidemia 1 Occurrences starting 2024 until 2025 documented as of this encounter Visit Diagnoses Diagnosis Mixed hyperlipidemia- Primary documented in this encounter Discontinued Medications Medication Sig Discontinue Reason Start Date End Da te atorvastatin (LIPITOR) 20 mg tabletIndications:Mixed hyperlipidemia Take 1 tablet (20 mg total) by mouth 1 (one) time each day. Discontinued by another clinician 03/04/2024 2024 documented as of this encounter Care Teams Medical Social Worker Relationship Specialty Start Date End Date Sharita Crouch MD [address] [place] [address] PCP - General 05/16/12 documented as of this encounter
--- OUTSIDE RECORDS SUMMARY | 2024-04-03 17:45 | XMS_ITS | Encounter Summary ---
Author Organization [facility] Address [address] [place] [address] Care Team Providers Care Garment Alteration Examiner Name Role Phone Sharita Crouch MD Primary Care Provider [phone] Encounter Details Date Type Department Care Team (Latest Contact Info) Description 03/28/2024 Anticoagulation - Warfarin Visit [facility] [address] [place] [phone] Annalee Concepcion NP [address] [place] [address] [address] [place] [address] Atrial fibrillation, unspecified type (CMS/HCC) (Primary Dx) [...] as of this encounter Progress Notes * Oh Welch MA - 03/28/2024 3:11 PM EST Patient aware of instructions documented in this encounter Plan of Treatment Upcoming Encounters Date Type Department Care Team (Late st Contact Info) Description 06/05/2024 10:30 AM EDT Office Visit Orthopedic Surgery - [place] [id number] [address] [facility] [address] [place] [address] Morgan White MD [address] [place] [id number] documented as of this encounter Procedures Procedure Name Priority Date/Time Associated Diagnosis Comments PROTHROMBIN TIME WITH INR Routine 03/28/2024 documented in this encounter Results * Prothrombin time with INR (03/28/2024) INR 4.1 Prothrombin Time POC Blood Venous blood specimen / Unknown 03/28/2024 Historical Provider LAB BLOOD ORDERAB LES documented in this encounter Visit Diagnoses Diagnosis Atrial fibrillation, unspecified type (CMS/HCC)- Primary documented in this encounter Care Teams Garment Alteration Examiner Relationship Specialty Start Date End Date Sharita Crouch MD [address] [place] [address] PCP - General 05/16/12 documented as of this encounter
--- OUTSIDE RECORDS SUMMARY | 2024-04-03 17:45 | XMS_ITS | Encounter Summary ---
Author Organization [facility] Address [address] [place] [address] Care Team Providers Care Counter Sales Representative Name Role Phone Sharita Crouch MD Primary Care Provider [phone] Encounter Details Date Type Department Care Team (Latest Contact Info) Description 03/01/2024 Anticoagulation - Warfarin Visit [facility] [address] [place] [address] Tristin Hernandez MD [address] [place] [address] [address] [place], [place] [id number] Atrial fibrillation, unspecified type (CMS/HCC) (Primary Dx) [...] Progress Notes * Oh Welch MA - 03/01/2024 1:35 PM EST Patient aware of instructions documented in this encounter Plan of Treatment Upcoming Encounters Date Type Department Care Team (Late st Contact Info) Description 06/05/2024 10:30 AM EDT Office Visit Orthopedic Surgery - [place] [address] [facility] [address] [place] [phone] Morgan White MD [address] [address] documented as of this encounter Visit Diagnoses Diagnosis Atrial fibrillation, unspecified type (CMS/HCC)- Primary documented in this encounter Care Teams Counter Sales Representative Relationship Specialty Start Date End Date Sharita Crouch MD [address] [place] [address] PCP - General 05/16/12 documented as of this encounter
[2024-04-03 18:30] VITALS: BP 158/73; PULSE 55; RESP 16; TEMP 36.4; O2SAT 100
[2024-04-03 19:03] VITALS: BP 158/73; PULSE 55; RESP 16; TEMP 36.4; O2SAT 100
== END 2024-04-03 19:03 | disposition home or self-care (01) ==
PROVIDERS: Registered Nurse Emergency; Emergency Provider Emergency Medicine; PCP Internal Medicine
DX: M54.16 Radiculopathy, lumbar region (principal); M25.552 Pain in left hip; I48.91 Unspecified atrial fibrillation; M79.605 Pain in left leg; M54.50 Low back pain, unspecified; R60.0 Localized edema; R10.2 Pelvic and perineal pain; Z79.01 Long term (current) use of anticoagulants; Z79.899 Other long term (current) drug therapy
CPT/HCPCS: 36415; 72100; 73502; 80053; 85025; 85610; 93971; 96360; 99283; 99284

== ENCOUNTER → 2024-04-03 11:44 | Outpatient (BNV) | payer MEDICARE, SELFPAY | PROVIDERS: PCP Internal Medicine; Visit Provider Radiology Diagnostic Radiology | DX: M79.605 Pain in left leg (principal); M25.552 Pain in left hip; M54.50 Low back pain, unspecified | CPT/HCPCS: 72100; 73502; 93971 ==